=== PATIENT | male | born 1950 | race African-American/Black ===

== ENCOUNTER 2024-12-22 20:35 | Inpatient (IN) | payer MEDICARE, MEDICAID ==
[~2024-12-22] VITALS: Ht 172.7 cm; Wt 64.6 kg
[2024-12-22 20:40] VITALS: O2SAT 99
[2024-12-22 21:25] LABS: BASOPHILS % 0.5 % (0.0-2.0); EOSINOPHILS % 0.1 % (0.0-5.0); HEMATOCRIT. 44.0 % (42.0-52.0); HEMOGLOBIN. 14.7 g/dL (14.0-18.0); LYMPHOCYTES % 11.8 % (20.0-50.0); MEAN PLATELET VOLUME 7.5 fl (7.4-10.4); MONOCYTES % 7.1 % (2.0-8.0); NEUTROPHILS % 80.5 % (40.0-76.0); PLATELET 359 x1000/uL (130-400); RED BLOOD CELL COUNT 4.75 mill/uL (4.7-6.1); RED CELL DISTRIBUTION WIDTH 15.6 % (11.6-14.6)
[2024-12-22 21:39] LABS: INR 1.2
[2024-12-22 21:41] LABS: CREATININE 1.8 mg/dL (0.6-1.3)
[2024-12-22 21:42] LABS: TROPONIN I HIGH SENSITIVITY 4 ng/L (3.0-53)
[2024-12-22 21:43] LABS: ASPARTATE AMINOTRANSFERASE 24 IU/L (<34); BILIRUBIN DIRECT 0.2 mg/dL (<=3.0); BILIRUBIN TOTAL 0.5 mg/dL (0.1-1.0); PROTEIN TOTAL 7.9 g/dL (6.0-8.3); UREA NITROGEN BLOOD 46 mg/dL (9-23)
[2024-12-22] MEDS: SODIUM CHLORIDE 0.9% (SEPSIS BOLUS) IV ONE (21:52)
[2024-12-22] MEDS: PIPERACILLIN/TAZO 3.375G/50ML 50 ML IV STA (21:53)
[2024-12-22 22:23] LABS: INFLUENZA TYPE A Presumptive Negative (Pres. Neg.); INFLUENZA TYPE B Presumptive Negative (Pres. Neg.)
[2024-12-22 22:24] LABS: RESPIRATORY SYNCYTIAL VIRUS Not Detected (Not Detectd)
[2024-12-22] MEDS ORDERED: VANCOMYCIN 1.5GM/250ML IV SCH (23:00)
[2024-12-22] MEDS: VANCOMYCIN 1.25GM/250ML IV SCH (23:20)
[2024-12-23] MEDS ORDERED: DEXT 5%/0.9% NACL 500 ML IV ONE (00:15)
[2024-12-23] MEDS ORDERED: IPRATROPIUM/ALBUTEROL 0.5-3(2.5)MG/3ML NEB HHN PRN (00:15)
[2024-12-23] MEDS ORDERED: ONDANSETRON HCL 4MG/2ML INJ IV PRN (00:15)
[2024-12-23] MEDS ORDERED: DEXTROSE 50% WATER 50ML SYRINGE IV PRN (00:15)
[2024-12-23] MEDS ORDERED: SODIUM CHLORIDE 0.9% 1,000 ML IV ONE (00:30)
[2024-12-23] MEDS ORDERED: INSULIN GLARGINE 100 UNITS/ML SUBCUT NR (00:45)
[2024-12-23 00:59] LABS: CLARITY URINE CLEAR (CLEAR); COLOR URINE YELLOW (YELLOW); GLUCOSE URINE NEGATIVE (NEGATIVE); KETONES URINE TRACE (NEGATIVE); LEUKOCYTE ESTERASE URINE NEGATIVE (NEGATIVE); NITRITE URINE NEGATIVE (NEGATIVE); OCCULT BLOOD URINE 2+ (NEGATIVE); PH URINE 5.0 (4.5-8.0); PROTEIN URINE NEGATIVE (NEGATIVE); SPECIFIC GRAVITY URINE 1.021 (1.005-1.030); UROBILINOGEN URINE 0.2 E.U./dL (0.2-1.0)
[2024-12-23 01:21] LABS: *AMPHETAMINES SCREEN URINE NEGATIVE (NEGATIVE)
[2024-12-23 01:22] LABS: *BARBITURATES SCREEN URINE NEGATIVE (NEGATIVE); *BENZODIAZEPINES SCREEN URINE NEGATIVE (NEGATIVE); *COCAINE SCREEN URINE NEGATIVE (NEGATIVE); CANNABINOID URINE SCREEN NEGATIVE (NEGATIVE); ECSTASY MDMA SCREEN URINE NEGATIVE (NEGATIVE); METHADONE URINE SCREEN NEGATIVE (NEGATIVE); OPIATES URINE SCREEN NEGATIVE (NEGATIVE); PHENCYCLIDINE URINE SCREEN NEGATIVE (NEGATIVE)
[2024-12-23 02:28] VITALS: BP 130/94; PULSE 92; RESP 18; TEMP 36.3624
[2024-12-23] MEDS ORDERED: RISP1 PO (03:08)
[2024-12-23] MEDS ORDERED: TOPUD PO (03:08)
[2024-12-23] MEDS ORDERED: AMAN100T PO (03:08)
[2024-12-23] MEDS ORDERED: HYDR5TAB13 PO (03:08)
[2024-12-23] MEDS ORDERED: BETDL TP (03:08)
[2024-12-23] MEDS ORDERED: MIDO5TAB4 PO (03:08)
[2024-12-23] MEDS ORDERED: QUET100T34 PO (03:08)
[2024-12-23] MEDS ORDERED: ASPI-1406 PO (03:08)
[2024-12-23] MEDS ORDERED: FAMO20TA8 PO (03:08)
[2024-12-23] MEDS ORDERED: AMLO5TAB88 PO (03:08)
[2024-12-23] MEDS ORDERED: HYDR-4001 PO (03:08)
[2024-12-23] MEDS ORDERED: APIX5TAB PO (03:08)
[2024-12-23] MEDS ORDERED: METF-1149 PO (03:08)
[2024-12-23] MEDS ORDERED: ATOR40TA70 PO (03:08)
[2024-12-23 04:00] VITALS: BP 115/82; PULSE 87; RESP 18; TEMP 36.1; O2SAT 97
[2024-12-23 04:48] LABS: SQUAMOUS EPITHELIAL CELL URINE NONE SEEN /lpf (RARE/1+); WBC URINE 0-2 /hpf (0-2)
[2024-12-23 04:49] LABS: BACTERIA URINE NONE SEEN; URIC ACID CRYSTALS URINE 1+ /lpf
[2024-12-23] MEDS: PIPERACILLIN/TAZO 3.375G/50ML 50 ML IV SCH (06:14)
[2024-12-23] MEDS: BLOOD SUGAR DIAGNOSTIC STRIP TEST SCH (06:15)
[2024-12-23] MEDS: HYDROCORTISONE SOD SUCCINATE 100 MG/2 ML VIAL IV SCH (06:15)
[2024-12-23 07:23] LABS: PHOSPHORUS 3.5 mg/dL (2.5-4.9)
[2024-12-23 07:53] VITALS: BP 123/85; PULSE 77; RESP 19; TEMP 36.3; O2SAT 92
[2024-12-23 08:53] LABS: CLARITY URINE CLEAR (CLEAR); COLOR URINE YELLOW (YELLOW); GLUCOSE URINE NEGATIVE (NEGATIVE); KETONES URINE NEGATIVE (NEGATIVE); LEUKOCYTE ESTERASE URINE NEGATIVE (NEGATIVE); NITRITE URINE NEGATIVE (NEGATIVE); OCCULT BLOOD URINE 2+ (NEGATIVE); PH URINE 5.0 (4.5-8.0); PROTEIN URINE NEGATIVE (NEGATIVE); SPECIFIC GRAVITY URINE 1.023 (1.005-1.030); UROBILINOGEN URINE 0.2 E.U./dL (0.2-1.0)
[2024-12-23] MEDS ORDERED: ENOXAPARIN 40MG/0.4ML SYR SUBCUT SCH (09:00)
[2024-12-23 09:10] LABS: BACTERIA URINE NONE SEEN; HYALINE CASTS URINE 0-5 /lpf; SQUAMOUS EPITHELIAL CELL URINE RARE /lpf (RARE/1+); URIC ACID CRYSTALS URINE 2+ /lpf; WBC URINE 0-2 /hpf (0-2); YEAST URINE NONE SEEN
[2024-12-23] MEDS: PANTOPRAZOLE SODIUM 40 MG/VIAL IV SCH (10:09)
[2024-12-23] MEDS: INSULIN LISPRO 100 UNITS/ML SUBCUT SCH (10:10)
[2024-12-23 10:37] LABS: *AMPHETAMINES SCREEN URINE NEGATIVE (NEGATIVE); *BARBITURATES SCREEN URINE NEGATIVE (NEGATIVE); *BENZODIAZEPINES SCREEN URINE NEGATIVE (NEGATIVE); *COCAINE SCREEN URINE NEGATIVE (NEGATIVE); METHADONE URINE SCREEN NEGATIVE (NEGATIVE)
[2024-12-23 10:38] LABS: CANNABINOID URINE SCREEN NEGATIVE (NEGATIVE); ECSTASY MDMA SCREEN URINE NEGATIVE (NEGATIVE); OPIATES URINE SCREEN NEGATIVE (NEGATIVE); PHENCYCLIDINE URINE SCREEN NEGATIVE (NEGATIVE)
[2024-12-23 12:06] VITALS: BP 123/78; PULSE 77; RESP 19; TEMP 36.1; O2SAT 95
[2024-12-23 15:53] VITALS: BP 123/83; PULSE 75; RESP 18; TEMP 36.3; O2SAT 98
[2024-12-23 20:00] VITALS: BP 129/87; PULSE 76; RESP 18; TEMP 36.2; O2SAT 97
[2024-12-23] MEDS: VANCOMYCIN 750MG/150ML (BAXTER) IV SCH (21:58)
[2024-12-23] MEDS ORDERED: VANCOMYCIN 1GM/200ML PMX (BAXTER) IV SCH (23:00)
[2024-12-24] VITALS: BP 137/89; PULSE 75; RESP 20; TEMP 36.1; O2SAT 97
[2024-12-24 04:00] VITALS: BP 145/88; PULSE 69; RESP 20; TEMP 36.2; O2SAT 99
[2024-12-24 07:12] LABS: BASOPHILS % 0.1 % (0.0-2.0); EOSINOPHILS % 0.1 % (0.0-5.0); HEMATOCRIT. 36.3 % (42.0-52.0); HEMOGLOBIN. 12.3 g/dL (14.0-18.0); LYMPHOCYTES % 9.6 % (20.0-50.0); MEAN PLATELET VOLUME 7.5 fl (7.4-10.4); MONOCYTES % 4.2 % (2.0-8.0); NEUTROPHILS % 86.0 % (40.0-76.0); PLATELET 308 x1000/uL (130-400); RED BLOOD CELL COUNT 3.92 mill/uL (4.7-6.1); RED CELL DISTRIBUTION WIDTH 15.1 % (11.6-14.6)
[2024-12-24 07:17] LABS: CREATININE 1.1 mg/dL (0.6-1.3); TRIGLYCERIDE 69 mg/dL (0-150); UREA NITROGEN BLOOD 34 mg/dL (9-23)
[2024-12-24 07:18] LABS: LDL CHOLESTEROL 41 mg/dL (5-100)
[2024-12-24 07:19] LABS: T4 FREE 0.95 ng/dL (0.89-1.76)
[2024-12-24 08:15] VITALS: BP 109/74; PULSE 100; RESP 18; TEMP 36.2
[2024-12-24] MEDS: DEXT 5%/0.9% NACL 500 ML IV ONE (09:00)
[2024-12-24 09:39] LABS: ASPARTATE AMINOTRANSFERASE 29 IU/L (<34); BILIRUBIN DIRECT 0.3 mg/dL (<=3.0); BILIRUBIN TOTAL 0.7 mg/dL (0.1-1.0)
[2024-12-24 09:40] LABS: PROTEIN TOTAL 7.2 g/dL (6.0-8.3)
[2024-12-24 11:48] VITALS: BP 115/81; PULSE 101; RESP 18; TEMP 36.6; O2SAT 94
[2024-12-24] MEDS ORDERED: VANCOMYCIN 1GM PMX (XELLIA) 200 ML IV SCH (13:00)
[2024-12-24] MEDS: ENOXAPARIN 40MG/0.4ML SYR SUBCUT SCH (14:40)
[2024-12-24 15:55] VITALS: BP 131/83; PULSE 94; RESP 20; TEMP 36.7; O2SAT 93
[2024-12-24 20:42] VITALS: BP 126/87; PULSE 88; RESP 16; TEMP 36.9; O2SAT 99
[2024-12-24] MEDS: DEXT 5%/0.9% NACL 1,000 ML IV SCH (21:51)
[2024-12-25] VITALS: BP 134/83; PULSE 73; RESP 18; TEMP 36.4
[2024-12-25] MEDS: POTASSIUM CHLORIDE 20MEQ TABLET SR PO NR (02:28)
[2024-12-25 04:00] VITALS: BP 126/80; PULSE 92; RESP 18; TEMP 36.4
[2024-12-25 08:00] VITALS: BP 137/89; PULSE 60; RESP 18; TEMP 36.1; O2SAT 97
[2024-12-25] MEDS: FAMOTIDINE 20MG/2ML VIAL IV SCH (09:45)
[2024-12-25 09:48] LABS: HEMATOCRIT. 34.5 % (42.0-52.0); HEMOGLOBIN. 11.5 g/dL (14.0-18.0); MEAN PLATELET VOLUME 7.5 fl (7.4-10.4); PLATELET 306 x1000/uL (130-400); RED BLOOD CELL COUNT 3.73 mill/uL (4.7-6.1); RED CELL DISTRIBUTION WIDTH 15.1 % (11.6-14.6)
[2024-12-25 10:11] LABS: CREATININE 0.9 mg/dL (0.6-1.3); UREA NITROGEN BLOOD 20 mg/dL (9-23)
[2024-12-25 10:59] LABS: BAND% 1.0 % (1.0-6.0); LYMPHOCYTES % MANUAL 9.0 % (20.0-50.0); MONOCYTES % MANUAL 3.0 % (2.0-8.0); NEUTROPHILS % MANUAL 87.0 % (45.0-75.0); PLATELET ESTIMATE NORMAL
[2024-12-25 11:51] VITALS: BP 137/68; PULSE 76; RESP 18; TEMP 97.6
[2024-12-25 12:00] VITALS: BP 140/88; PULSE 99; RESP 18; TEMP 36.2; O2SAT 98
[2024-12-25 16:00] VITALS: BP 146/85; PULSE 78; RESP 18; TEMP 36.3; O2SAT 98
== END 2024-12-25 17:55 | DRG 871 ==
LOC: ER 20:45 → EDBEDREQ 23:49 → EDBEDREQTM 23:49 → ENRESERV 12-23 01:23 → 7WST 12-23 01:52
PROVIDERS: ADMIT Internal Medicine; ATTEND Internal Medicine
DX: A41.9 Sepsis, unspecified organism (principal); L89.313 Pressure ulcer of right buttock, stage 3; G93.40 Encephalopathy, unspecified; N17.9 Acute kidney failure, unspecified; E87.20 Acidosis, unspecified; Z20.822 Contact with and (suspected) exposure to COVID-19; N18.9 Chronic kidney disease, unspecified; E11.22 Type 2 diabetes mellitus with diabetic chronic kidney disease; G20.C Parkinsonism, unspecified; R13.12 Dysphagia, oropharyngeal phase; I12.9 Hypertensive chronic kidney disease with stage 1 through stage 4 chronic kidney disease, or unspecified chronic kidney disease; L89.626 Pressure-induced deep tissue damage of left heel; L89.616 Pressure-induced deep tissue damage of right heel; L89.326 Pressure-induced deep tissue damage of left buttock; F02.80 Dementia in other diseases classified elsewhere, unspecified severity, without behavioral disturbance, psychotic disturbance, mood disturbance, and anxiety; L89.512 Pressure ulcer of right ankle, stage 2; R62.7 Adult failure to thrive; Z68.21 Body mass index [BMI] 21.0-21.9, adult; Z79.01 Long term (current) use of anticoagulants; Z79.82 Long term (current) use of aspirin; Z79.899 Other long term (current) drug therapy
CPT/HCPCS: 36415; 71045; 74018; 80048; 80061; 80076; 80202; 80305; 80320; 81003; 82140; 82962; 83036; 83605; 83735; 83880; 84100; 84145; 84439; 84443; 84484; 85025; 87420; 87426; 87804; 93005; 96365; 96368; 99291; A4606; J1308; J1650; J1720; J1815; J2470; J2543; J3373; J7030; J7042; G0480

== ENCOUNTER 2025-01-29 10:15 | Inpatient (IN) | payer MEDICARE, MEDICAID ==
[~2025-01-29] VITALS: Ht 182.9 cm; Wt 64.4 kg
[~2025-01-29 10:15] MED LIST: AMAN100T PO; AMLO5TAB88 PO; APIX5TAB PO; ASPI-1406 PO; ATOR40TA70 PO; BETDL TP; FAMO20TA8 PO; HYDR-4001 PO; HYDR5TAB13 PO; METF-1149 PO; MIDO5TAB4 PO; QUET100T34 PO; RISP1 PO; TOPUD PO
[2025-01-29] MEDS: SODIUM CHLORIDE 0.9% 1,000 ML IV ONE (10:33)
[2025-01-29] MEDS: PIPERACILLIN/TAZO 3.375G/50ML 50 ML IV ONE (10:33)
[2025-01-29 10:56] LABS: BASOPHILS % 0.4 % (0.0-2.0); EOSINOPHILS % 0.1 % (0.0-5.0); HEMATOCRIT. 29.7 % (42.0-52.0); HEMOGLOBIN. 9.8 g/dL (14.0-18.0); LYMPHOCYTES % 23.5 % (20.0-50.0); MEAN PLATELET VOLUME 9.3 fl (7.4-10.4); MONOCYTES % 3.6 % (2.0-8.0); NEUTROPHILS % 72.4 % (40.0-76.0); PLATELET 299 x1000/uL (130-400); RED BLOOD CELL COUNT 3.32 mill/uL (4.7-6.1); RED CELL DISTRIBUTION WIDTH 16.4 % (11.6-14.6)
[2025-01-29] MEDS: VANCOMYCIN 1G PREMIX 200 ML IV ONE (11:06)
[2025-01-29 11:19] LABS: ASPARTATE AMINOTRANSFERASE 42 IU/L (<34); BILIRUBIN DIRECT 0.2 mg/dL (<=3.0); BILIRUBIN TOTAL 0.4 mg/dL (0.1-1.0); CREATININE 0.7 mg/dL (0.6-1.3); PROTEIN TOTAL 6.7 g/dL (6.0-8.3); TROPONIN I HIGH SENSITIVITY 9 ng/L (3.0-53); UREA NITROGEN BLOOD 15 mg/dL (9-23)
[2025-01-29 11:37] LABS: BG BASE EXCESS 1.0 mmol/L (-2.0-3.0); BG CARBOXYHEMOGLOBIN 0.3 % (0.5-1.5); BG DEOXYHEMOGLOBIN 0.4 % (0.0-5.0); BG FLOW(L/min) 15.00 L/min; BG FRACTION INSPIRED OXYGEN 100; BG HCO3 ACT 23.1 mmol/L (21.0-28.0); BG METHEMOGLOBIN 0.3 % (0.5-1.5); BG OXYGEN SATURATION 99.6 % (94.0-98.0); BG OXYHEMOGLOBIN 99.0 % (94.0-98.0); BG PCO2 28.5 mmHg (35.0-48.0); BG PH 7.527 (7.350-7.450); BG PO2 291.5 mmHg (83.0-108.0); BG SAMPLE SITE LEFT BRACHIAL; BG TOTAL HEMOGLOBIN 10.5 g/dL (13.5-17.5); BG VENT MODE MASK - NRB
[2025-01-29 12:03] LABS: INR 1.2
[2025-01-29 16:00] VITALS: BP_SYST 155; BP_SYST 97; BP_DIAS 131; BP_DIAS 77; PULSE 124; RESP 25; RESP 30; TEMP 39.4; TEMP 39.476; O2SAT 100
[2025-01-29 18:00] VITALS: BP 101/70; PULSE 126; RESP 26; O2SAT 100
[2025-01-29 20:00] VITALS: BP 106/78; PULSE 127; RESP 25; TEMP 37; O2SAT 100
[2025-01-29] MEDS ORDERED: MIDODRINE HCL 5MG TABLET PO PRN (21:45)
[2025-01-29 22:00] VITALS: BP 99/64; PULSE 120; RESP 24; O2SAT 98
[2025-01-29] MEDS: PIPERACILLIN/TAZO 3.375G/50ML 50 ML IV SCH (23:00)
[2025-01-29] MEDS: HEPARIN 5000 UNITS/ML VIAL SUBCUT SCH (23:00)
[2025-01-29] MEDS: SODIUM CHLORIDE 0.9% 1,000 ML IV SCH (23:01)
[2025-01-30] VITALS (12 sets, daily range): BP systolic 82–115; BP diastolic 67–95; PULSE 98–115; RESP 22–33; TEMP 36.3–37.6; O2SAT 99–100
[2025-01-30] MEDS: VANCOMYCIN 750MG/150ML (BAXTER) IV SCH ×2 (00:28→22:41)
[2025-01-30 07:24] LABS: BASOPHILS % 0.5 % (0.0-2.0); EOSINOPHILS % 0.6 % (0.0-5.0); HEMATOCRIT. 26.0 % (42.0-52.0); HEMOGLOBIN. 8.4 g/dL (14.0-18.0); LYMPHOCYTES % 13.7 % (20.0-50.0); MEAN PLATELET VOLUME 9.3 fl (7.4-10.4); MONOCYTES % 9.4 % (2.0-8.0); NEUTROPHILS % 75.8 % (40.0-76.0); PLATELET 261 x1000/uL (130-400); RED BLOOD CELL COUNT 2.92 mill/uL (4.7-6.1); RED CELL DISTRIBUTION WIDTH 16.6 % (11.6-14.6)
[2025-01-30 07:40] LABS: TROPONIN I HIGH SENSITIVITY 8 ng/L (3.0-53)
[2025-01-30 07:45] LABS: CREATININE 0.7 mg/dL (0.6-1.3); UREA NITROGEN BLOOD 16 mg/dL (9-23)
[2025-01-30] MEDS ORDERED: FAMOTIDINE 20MG TABLET PO SCH (09:00)
[2025-01-30] MEDS ORDERED: FAMOTIDINE(NEO) 1MG/ML SUSP PO SCH (09:00)
[2025-01-30] MEDS: QUETIAPINE FUMARATE 50MG TABLET PO SCH (09:32)
[2025-01-30] MEDS: MIDODRINE HCL 5MG TABLET PO SCH (09:33)
[2025-01-30] MEDS: ASPIRIN 81MG EC TABLET PO SCH (09:33)
[2025-01-30] MEDS: FAMOTIDINE 20MG TABLET PO SCH (09:33)
[2025-01-30] MEDS ORDERED: VANCOMYCIN 750MG/150ML (BAXTER) IV SCH (10:30)
[2025-01-30] MEDS ORDERED: IPRATROPIUM/ALBUTEROL 0.5-3(2.5)MG/3ML NEB HHN PRN (10:45)
[2025-01-30] MEDS: ENOXAPARIN 60MG/0.6ML SYR SUBCUT SCH (11:14)
[2025-01-30] MEDS: BLOOD SUGAR DIAGNOSTIC STRIP TEST SCH (12:09)
[2025-01-30] MEDS: INSULIN LISPRO 100 UNITS/ML SUBCUT SCH (13:00)
[2025-01-30 22:40] LABS: FOLIC ACID (FOLATE) SERUM > 20.00 ng/mL (>5.38); VITAMIN B12 SERUM 434 pg/mL (211-911)
[2025-01-30] MEDS: ATORVASTATIN CALCIUM 40MG TABLET PO SCH (22:41)
[2025-01-30] MEDS: RISPERIDONE 1MG TABLET PO SCH (22:41)
[2025-01-30] MEDS: AMANTADINE 100MG CAPSULE PO SCH (22:44)
[2025-01-31] VITALS (16 sets, daily range): BP systolic 85–119; BP diastolic 59–79; PULSE 100–115; RESP 19–41; TEMP 36.2–37.4; O2SAT 91–100
[2025-01-31] MEDS: IPRATROPIUM/ALBUTEROL 0.5-3(2.5)MG/3ML NEB HHN SCH (05:48)
[2025-01-31 07:10] LABS: CREATININE 0.5 mg/dL (0.6-1.3); UREA NITROGEN BLOOD 13 mg/dL (9-23)
[2025-01-31 07:11] LABS: BASOPHILS % 0.4 % (0.0-2.0); EOSINOPHILS % 0.8 % (0.0-5.0); HEMATOCRIT. 24.9 % (42.0-52.0); HEMOGLOBIN. 8.1 g/dL (14.0-18.0); LYMPHOCYTES % 15.3 % (20.0-50.0); MEAN PLATELET VOLUME 8.9 fl (7.4-10.4); MONOCYTES % 7.7 % (2.0-8.0); NEUTROPHILS % 75.8 % (40.0-76.0); PLATELET 247 x1000/uL (130-400); RED BLOOD CELL COUNT 2.79 mill/uL (4.7-6.1); RED CELL DISTRIBUTION WIDTH 16.4 % (11.6-14.6)
[2025-01-31 10:29] LABS: INFLUENZA TYPE A Presumptive Negative (Pres. Neg.); INFLUENZA TYPE B Presumptive Negative (Pres. Neg.); RESPIRATORY SYNCYTIAL VIRUS Not Detected (Not Detectd)
[2025-01-31] MEDS: CYANOCOBALAMIN 1000MCG/ML VIAL IM SCH (11:15)
[2025-01-31 12:16] LABS: CLARITY URINE CLOUDY (CLEAR); COLOR URINE DARK YELLOW (YELLOW); GLUCOSE URINE NEGATIVE (NEGATIVE); KETONES URINE TRACE (NEGATIVE); LEUKOCYTE ESTERASE URINE 1+ (NEGATIVE); NITRITE URINE NEGATIVE (NEGATIVE); OCCULT BLOOD URINE TRACE (NEGATIVE); PH URINE 5.5 (4.5-8.0); PROTEIN URINE 1+ (NEGATIVE); SPECIFIC GRAVITY URINE 1.056 (1.005-1.030); UROBILINOGEN URINE 2.0 E.U./dL (0.2-1.0)
[2025-01-31 12:51] LABS: SQUAMOUS EPITHELIAL CELL URINE FEW /lpf (RARE/1+)
[2025-01-31 12:52] LABS: WBC URINE 50-100 /hpf (0-2)
[2025-01-31 12:53] LABS: BACTERIA URINE 2+; RBC URINE 0-2 /hpf (0-2)
[2025-01-31] MEDS: VANCOMYCIN 1GM PMX (XELLIA) 200 ML IV SCH (15:07)
[2025-02-01] VITALS (16 sets, daily range): BP systolic 96–128; BP diastolic 63–96; PULSE 84–110; RESP 19–40; TEMP 36.6–38.4; O2SAT 98–100
[2025-02-01 05:47] LABS: CREATININE 0.5 mg/dL (0.6-1.3); UREA NITROGEN BLOOD 7 mg/dL (9-23)
[2025-02-01 05:49] LABS: ASPARTATE AMINOTRANSFERASE 59 IU/L (<34); BILIRUBIN DIRECT 0.2 mg/dL (<=3.0); BILIRUBIN TOTAL 0.4 mg/dL (0.1-1.0); PHOSPHORUS 2.8 mg/dL (2.5-4.9); PROTEIN TOTAL 5.4 g/dL (6.0-8.3)
[2025-02-01 05:55] LABS: INR 1.1
[2025-02-01 06:00] LABS: BASOPHILS % 0.2 % (0.0-2.0); EOSINOPHILS % 1.2 % (0.0-5.0); HEMATOCRIT. 23.1 % (42.0-52.0); HEMOGLOBIN. 7.2 g/dL (14.0-18.0); LYMPHOCYTES % 13.4 % (20.0-50.0); MEAN PLATELET VOLUME 8.7 fl (7.4-10.4); MONOCYTES % 8.0 % (2.0-8.0); NEUTROPHILS % 77.2 % (40.0-76.0); PLATELET 270 x1000/uL (130-400); RED BLOOD CELL COUNT 2.56 mill/uL (4.7-6.1); RED CELL DISTRIBUTION WIDTH 16.6 % (11.6-14.6)
[2025-02-01] MEDS: MAGNESIUM 2 G PREMIX 50 ML IV SCH (13:36)
[2025-02-01] MEDS: ACETAMINOPHEN 1000MG/100ML 100 ML IV PRN (23:28)
[2025-02-02] VITALS (16 sets, daily range): BP systolic 87–135; BP diastolic 54–86; PULSE 90–107; RESP 14–38; TEMP 36.4–37.9; O2SAT 96–100
[2025-02-02 05:38] LABS: CREATININE 0.5 mg/dL (0.6-1.3); UREA NITROGEN BLOOD 6 mg/dL (9-23)
[2025-02-02] MEDS: DEXTROSE 50% WATER 50ML SYRINGE IV PRN (11:57)
[2025-02-02] MEDS ORDERED: NALOXONE HCL 0.4MG/ML VIAL IV PRN (12:15)
[2025-02-02] MEDS: KCL 20MEQ/100ML PREMIX 100 ML IV SCH (13:06)
[2025-02-02] MEDS: DEXT 5%/0.45% NACL 1000ML 1,000 ML IV SCH (14:16)
[2025-02-02 22:11] LABS: BASOPHILS % 0.7 % (0.0-2.0); EOSINOPHILS % 1.5 % (0.0-5.0); HEMATOCRIT. 24.1 % (42.0-52.0); HEMOGLOBIN. 7.7 g/dL (14.0-18.0); LYMPHOCYTES % 17.9 % (20.0-50.0); MEAN PLATELET VOLUME 7.9 fl (7.4-10.4); MONOCYTES % 7.5 % (2.0-8.0); NEUTROPHILS % 72.4 % (40.0-76.0); PLATELET 335 x1000/uL (130-400); RED BLOOD CELL COUNT 2.70 mill/uL (4.7-6.1); RED CELL DISTRIBUTION WIDTH 16.6 % (11.6-14.6)
[2025-02-02 22:36] LABS: CREATININE 0.4 mg/dL (0.6-1.3); UREA NITROGEN BLOOD < 5 mg/dL (9-23)
[2025-02-02 22:38] LABS: PHOSPHORUS 2.5 mg/dL (2.5-4.9)
[2025-02-03] VITALS (15 sets, daily range): BP systolic 92–136; BP diastolic 59–96; PULSE 90–115; RESP 18–28; TEMP 36.2–36.9; O2SAT 18–100
[2025-02-03 07:06] LABS: BASOPHILS % 0.7 % (0.0-2.0); EOSINOPHILS % 2.4 % (0.0-5.0); HEMATOCRIT. 23.2 % (42.0-52.0); HEMOGLOBIN. 7.7 g/dL (14.0-18.0); LYMPHOCYTES % 22.0 % (20.0-50.0); MEAN PLATELET VOLUME 8.5 fl (7.4-10.4); MONOCYTES % 9.2 % (2.0-8.0); NEUTROPHILS % 65.7 % (40.0-76.0); PLATELET 318 x1000/uL (130-400); RED BLOOD CELL COUNT 2.63 mill/uL (4.7-6.1); RED CELL DISTRIBUTION WIDTH 16.4 % (11.6-14.6)
[2025-02-03 07:34] LABS: CREATININE 0.4 mg/dL (0.6-1.3); UREA NITROGEN BLOOD < 5 mg/dL (9-23)
[2025-02-03] MEDS: MORPHINE SULFATE 2 MG/ML INJ (NOT FOR IM USE) IV PRN (16:47)
[2025-02-04] VITALS (15 sets, daily range): BP systolic 109–136; BP diastolic 73–94; PULSE 94–112; RESP 15–30; TEMP 36.2–37; O2SAT 96–100
[2025-02-04 07:30] LABS: BASOPHILS % 0.5 % (0.0-2.0); EOSINOPHILS % 2.3 % (0.0-5.0); HEMATOCRIT. 25.3 % (42.0-52.0); HEMOGLOBIN. 8.1 g/dL (14.0-18.0); LYMPHOCYTES % 26.9 % (20.0-50.0); MEAN PLATELET VOLUME 7.5 fl (7.4-10.4); MONOCYTES % 13.3 % (2.0-8.0); NEUTROPHILS % 57.0 % (40.0-76.0); PLATELET 363 x1000/uL (130-400); RED BLOOD CELL COUNT 2.84 mill/uL (4.7-6.1); RED CELL DISTRIBUTION WIDTH 16.7 % (11.6-14.6)
[2025-02-04 07:48] LABS: CREATININE 0.5 mg/dL (0.6-1.3)
[2025-02-04 07:49] LABS: UREA NITROGEN BLOOD < 5 mg/dL (9-23)
[2025-02-04] MEDS ORDERED: BUPIVACAINE HCL/PF 0.5% (5MG/ML) 10ML ONE (16:37)
[2025-02-04] MEDS ORDERED: LIDOCAINE HCL 1% 20ML VIAL ONE (16:37)
[2025-02-04] MEDS ORDERED: POLYMYXIN B SULFATE 500000 UNITS/VIAL ONE (16:38)
[2025-02-04] MEDS ORDERED: FENTANYL CITRATE/PF 50MCG/ML 2ML VIAL ONE (17:18)
[2025-02-04] MEDS ORDERED: LIDOCAINE HCL 1% 10 MG/ML 10ML VIAL ONE (17:19)
[2025-02-04] MEDS ORDERED: PROPOFOL 200MG/20ML VIAL IV ONE (17:19)
[2025-02-04] MEDS ORDERED: ONDANSETRON HCL 4MG/2ML INJ ONE (17:29)
[2025-02-04] MEDS ORDERED: ACETAMINOPHEN 1000MG/100ML 100 ML IV ONE (17:42)
[2025-02-04] MEDS: CEFTRIAXONE 2GM/50ML 50 ML IV SCH (20:33)
[2025-02-05] VITALS (12 sets, daily range): BP systolic 108–134; BP diastolic 77–101; PULSE 95–107; RESP 20–30; TEMP 36.4–36.6; O2SAT 100
[2025-02-05 07:25] LABS: BASOPHILS % 0.3 % (0.0-2.0); EOSINOPHILS % 1.5 % (0.0-5.0); HEMATOCRIT. 24.3 % (42.0-52.0); HEMOGLOBIN. 8.0 g/dL (14.0-18.0); LYMPHOCYTES % 20.1 % (20.0-50.0); MEAN PLATELET VOLUME 7.0 fl (7.4-10.4); MONOCYTES % 9.3 % (2.0-8.0); NEUTROPHILS % 68.8 % (40.0-76.0); PLATELET 417 x1000/uL (130-400); RED BLOOD CELL COUNT 2.76 mill/uL (4.7-6.1); RED CELL DISTRIBUTION WIDTH 16.4 % (11.6-14.6)
[2025-02-05 07:52] LABS: CREATININE 0.5 mg/dL (0.6-1.3); UREA NITROGEN BLOOD < 5 mg/dL (9-23)
[2025-02-06] VITALS (12 sets, daily range): BP systolic 105–135; BP diastolic 71–94; PULSE 97–115; RESP 14–30; TEMP 36.3–36.9; O2SAT 87–100
[2025-02-06] MEDS ORDERED: LIDOCAINE HCL 1% 10 MG/ML 10ML VIAL ONE (07:12)
[2025-02-06] MEDS ORDERED: LORAZEPAM 2MG/ML UD SYRINGE IV PRN (08:00)
[2025-02-06] MEDS: FAMOTIDINE 20MG/2ML VIAL IV SCH (10:11)
[2025-02-07] VITALS (11 sets, daily range): BP systolic 101–127; BP diastolic 73–109; PULSE 98–107; RESP 12–26; TEMP 36.2–36.7; O2SAT 100
[2025-02-07 07:30] LABS: BASOPHILS % 0.6 % (0.0-2.0); EOSINOPHILS % 2.6 % (0.0-5.0); HEMATOCRIT. 26.3 % (42.0-52.0); HEMOGLOBIN. 8.7 g/dL (14.0-18.0); LYMPHOCYTES % 28.7 % (20.0-50.0); MEAN PLATELET VOLUME 7.4 fl (7.4-10.4); MONOCYTES % 6.4 % (2.0-8.0); NEUTROPHILS % 61.7 % (40.0-76.0); PLATELET 429 x1000/uL (130-400); RED BLOOD CELL COUNT 2.99 mill/uL (4.7-6.1); RED CELL DISTRIBUTION WIDTH 17.3 % (11.6-14.6)
[2025-02-07 07:50] LABS: CREATININE 0.4 mg/dL (0.6-1.3); UREA NITROGEN BLOOD < 5 mg/dL (9-23)
[2025-02-07 07:52] LABS: ASPARTATE AMINOTRANSFERASE 18 IU/L (<34); PHOSPHORUS 2.1 mg/dL (2.5-4.9)
[2025-02-07 07:53] LABS: BILIRUBIN TOTAL 0.2 mg/dL (0.1-1.0); PROTEIN TOTAL 5.1 g/dL (6.0-8.3)
[2025-02-07] MEDS: DEXT 5%/0.45% NACL 1000ML 1,000 ML IV SCH (09:37)
[2025-02-07] MEDS: MAGNESIUM 2 G PREMIX 50 ML IV NR (11:04)
[2025-02-07] MEDS: KCL 20MEQ/100ML PREMIX 100 ML IV NR (12:50)
[2025-02-07] MEDS: POTASSIUM PHOSPHATE 15MMOL in DEXTROSE 5% WATER 250ML IV ONE (13:29)
[2025-02-07] MEDS: TOTAL PARENTERAL NUTRITION 2,000 ML IV SCH (21:05)
[2025-02-08] VITALS: BP 107/75; PULSE 98; RESP 28; TEMP 36.4; O2SAT 100
[2025-02-08 04:00] VITALS: BP 126/86; PULSE 96; RESP 30; TEMP 37; O2SAT 100
[2025-02-08 07:10] LABS: BASOPHILS % 0.4 % (0.0-2.0); EOSINOPHILS % 2.0 % (0.0-5.0); HEMATOCRIT. 25.6 % (42.0-52.0); HEMOGLOBIN. 8.3 g/dL (14.0-18.0); LYMPHOCYTES % 24.9 % (20.0-50.0); MEAN PLATELET VOLUME 6.7 fl (7.4-10.4); MONOCYTES % 8.2 % (2.0-8.0); NEUTROPHILS % 64.5 % (40.0-76.0); PLATELET 421 x1000/uL (130-400); RED BLOOD CELL COUNT 2.91 mill/uL (4.7-6.1); RED CELL DISTRIBUTION WIDTH 17.4 % (11.6-14.6)
[2025-02-08 07:43] LABS: UREA NITROGEN BLOOD 5 mg/dL (9-23)
[2025-02-08 07:45] LABS: CREATININE 0.4 mg/dL (0.6-1.3); TRIGLYCERIDE 77 mg/dL (0-150)
[2025-02-08 07:47] LABS: ASPARTATE AMINOTRANSFERASE 22 IU/L (<34); BILIRUBIN TOTAL 0.2 mg/dL (0.1-1.0); PHOSPHORUS 3.0 mg/dL (2.5-4.9); PROTEIN TOTAL 5.7 g/dL (6.0-8.3)
[2025-02-08] MEDS: IOHEXOL-350 100 ML BOTTLE ONE (07:50)
[2025-02-08] MEDS: IOHEXOL-350 50 ML BOTTLE ONE (07:51)
[2025-02-08 08:00] VITALS: BP 140/84; PULSE 103; RESP 31; TEMP 36.2; O2SAT 100
[2025-02-08 12:00] VITALS: BP 146/91; PULSE 109; RESP 28; TEMP 36.9; O2SAT 100
[2025-02-08 16:00] VITALS: BP 137/73; PULSE 106; RESP 14; TEMP 36.8; O2SAT 100
[2025-02-08 20:00] VITALS: BP 119/81; PULSE 102; RESP 19; TEMP 36.4; O2SAT 100
[2025-02-08] MEDS: TOTAL PARENTERAL NUTRITION 2,000 ML IV SCH (21:08)
[2025-02-09] VITALS: BP 128/83; PULSE 98; RESP 25; TEMP 36.6; O2SAT 100
[2025-02-09 04:00] VITALS: BP 126/92; PULSE 95; RESP 21; TEMP 36.7; O2SAT 100
[2025-02-09 07:09] LABS: UREA NITROGEN BLOOD 10 mg/dL (9-23)
[2025-02-09 07:10] LABS: CREATININE 0.4 mg/dL (0.6-1.3); TRIGLYCERIDE 103 mg/dL (0-150)
[2025-02-09 07:12] LABS: ASPARTATE AMINOTRANSFERASE 19 IU/L (<34)
[2025-02-09 07:13] LABS: BILIRUBIN TOTAL 0.2 mg/dL (0.1-1.0); PHOSPHORUS 2.0 mg/dL (2.5-4.9); PROTEIN TOTAL 6.1 g/dL (6.0-8.3)
[2025-02-09 07:33] LABS: BASOPHILS % 0.3 % (0.0-2.0); EOSINOPHILS % 1.4 % (0.0-5.0); HEMATOCRIT. 28.1 % (42.0-52.0); HEMOGLOBIN. 9.1 g/dL (14.0-18.0); LYMPHOCYTES % 28.1 % (20.0-50.0); MEAN PLATELET VOLUME 6.7 fl (7.4-10.4); MONOCYTES % 7.5 % (2.0-8.0); NEUTROPHILS % 62.7 % (40.0-76.0); PLATELET 425 x1000/uL (130-400); RED BLOOD CELL COUNT 3.17 mill/uL (4.7-6.1); RED CELL DISTRIBUTION WIDTH 17.2 % (11.6-14.6)
[2025-02-09 08:00] VITALS: PULSE 113; RESP 25; TEMP 36.6; O2SAT 99
[2025-02-09 12:00] VITALS: BP 122/80; PULSE 108; RESP 30; O2SAT 98
[2025-02-09 16:00] VITALS: BP 115/84; PULSE 111; RESP 18; O2SAT 100
[2025-02-09 20:00] VITALS: BP 114/97; PULSE 113; RESP 20; TEMP 36.6; O2SAT 100
[2025-02-09] MEDS: TOTAL PARENTERAL NUTRITION 2,000 ML IV SCH (21:22)
[2025-02-10] VITALS: BP 111/69; PULSE 104; RESP 24; TEMP 36.5; O2SAT 100
[2025-02-10 04:00] VITALS: BP 99/75; PULSE 113; RESP 35; TEMP 36.3; O2SAT 100
[2025-02-10 06:06] LABS: CREATININE 0.3 mg/dL (0.6-1.3); UREA NITROGEN BLOOD 12 mg/dL (9-23)
[2025-02-10 06:07] LABS: TRIGLYCERIDE 84 mg/dL (0-150)
[2025-02-10 06:08] LABS: ASPARTATE AMINOTRANSFERASE 24 IU/L (<34)
[2025-02-10 06:09] LABS: BILIRUBIN TOTAL 0.2 mg/dL (0.1-1.0); PHOSPHORUS 2.0 mg/dL (2.5-4.9); PROTEIN TOTAL 6.4 g/dL (6.0-8.3)
[2025-02-10 06:32] LABS: BASOPHILS % 0.4 % (0.0-2.0); EOSINOPHILS % 0.8 % (0.0-5.0); HEMATOCRIT. 27.1 % (42.0-52.0); HEMOGLOBIN. 8.7 g/dL (14.0-18.0); LYMPHOCYTES % 28.2 % (20.0-50.0); MEAN PLATELET VOLUME 6.5 fl (7.4-10.4); MONOCYTES % 7.5 % (2.0-8.0); NEUTROPHILS % 63.1 % (40.0-76.0); PLATELET 399 x1000/uL (130-400); RED BLOOD CELL COUNT 3.02 mill/uL (4.7-6.1); RED CELL DISTRIBUTION WIDTH 17.4 % (11.6-14.6)
[2025-02-10 08:00] VITALS: BP 109/77; PULSE 100; RESP 31; TEMP 36.4; O2SAT 100
[2025-02-10 12:00] VITALS: BP 106/73; PULSE 108; RESP 23; TEMP 36.1; O2SAT 95
[2025-02-10] MEDS: MAGNESIUM 2 G PREMIX 50 ML IV SCH (12:05)
[2025-02-10] MEDS: POTASSIUM PHOSPHATE 20MMOL in DEXT 5% WATER 250ML IV SCH (15:07)
[2025-02-10 16:00] VITALS: BP 116/74; PULSE 106; RESP 25; TEMP 36.7; O2SAT 100
[2025-02-10 20:00] VITALS: BP 98/71; PULSE 104; RESP 29; TEMP 36.5; O2SAT 100
[2025-02-11] VITALS: BP 104/65; PULSE 94; RESP 25; TEMP 36.9; O2SAT 100
[2025-02-11] MEDS: FAT EMULSIONS 250 ML IV SCH (01:00)
[2025-02-11 04:00] VITALS: BP 113/73; PULSE 94; RESP 27; TEMP 36.4; O2SAT 100
[2025-02-11 05:57] LABS: BASOPHILS % 0.4 % (0.0-2.0); EOSINOPHILS % 2.3 % (0.0-5.0); HEMATOCRIT. 27.5 % (42.0-52.0); HEMOGLOBIN. 8.9 g/dL (14.0-18.0); LYMPHOCYTES % 25.3 % (20.0-50.0); MEAN PLATELET VOLUME 6.6 fl (7.4-10.4); MONOCYTES % 8.4 % (2.0-8.0); NEUTROPHILS % 63.6 % (40.0-76.0); PLATELET 386 x1000/uL (130-400); RED BLOOD CELL COUNT 3.05 mill/uL (4.7-6.1); RED CELL DISTRIBUTION WIDTH 18.0 % (11.6-14.6)
[2025-02-11 06:11] LABS: UREA NITROGEN BLOOD 8 mg/dL (9-23)
[2025-02-11 06:12] LABS: TRIGLYCERIDE 251 mg/dL (0-150)
[2025-02-11 06:14] LABS: ASPARTATE AMINOTRANSFERASE 65 IU/L (<34); PHOSPHORUS 1.6 mg/dL (2.5-4.9)
[2025-02-11 06:15] LABS: BILIRUBIN TOTAL < 0.2 mg/dL (0.1-1.0); PROTEIN TOTAL 5.9 g/dL (6.0-8.3)
[2025-02-11 06:19] LABS: CREATININE 0.4 mg/dL (0.6-1.3)
[2025-02-11 08:00] VITALS: BP 117/80; PULSE 105; RESP 24; TEMP 36.5; O2SAT 100
[2025-02-11 12:00] VITALS: BP 103/76; PULSE 114; RESP 32; TEMP 36.5; O2SAT 99
[2025-02-11] MEDS: DEXT 5% IV ONE (13:23)
[2025-02-11] MEDS: WATER IV ONE (13:23)
[2025-02-11] MEDS: POTASSIUM PHOSPHATE IV ONE (13:23)
[2025-02-11 16:00] VITALS: BP 104/57; PULSE 108; RESP 28; TEMP 36.6; O2SAT 100
[2025-02-11 19:55] VITALS: BP 126/86; PULSE 73; RESP 24; TEMP 97.9
== END 2025-02-11 21:30 | DRG 853 ==
LOC: ER 10:15 → EDBEDREQ 13:05 → EDBEDREQTM 13:05 → ENRESERV 14:32 → 5EST 17:51
PROVIDERS: ADMIT Internal Medicine; ATTEND Internal Medicine
PROC: 0JB80ZZ Excision of Abdomen Subcutaneous Tissue and Fascia, Open Approach (ICD-10-PCS; principal; 2025-02-04)
PROC: 0DP6XUZ Removal of Feeding Device from Stomach, External Approach (ICD-10-PCS; 2025-02-04)
PROC: 4A00X4Z Measurement of Central Nervous Electrical Activity, External Approach (ICD-10-PCS; 2025-02-05)
PROC: 02HV33Z Insertion of Infusion Device into Superior Vena Cava, Percutaneous Approach (ICD-10-PCS; 2025-02-06)
PROC: B548ZZA Ultrasonography of Superior Vena Cava, Guidance (ICD-10-PCS; 2025-02-06)
DX: A40.9 Streptococcal sepsis, unspecified (principal); G92.8 Other toxic encephalopathy; R65.21 Severe sepsis with septic shock; J96.01 Acute respiratory failure with hypoxia; J18.9 Pneumonia, unspecified organism; E87.4 Mixed disorder of acid-base balance; E11.52 Type 2 diabetes mellitus with diabetic peripheral angiopathy with gangrene; N39.0 Urinary tract infection, site not specified; B96.89 Other specified bacterial agents as the cause of diseases classified elsewhere; Z79.01 Long term (current) use of anticoagulants; I13.0 Hypertensive heart and chronic kidney disease with heart failure and stage 1 through stage 4 chronic kidney disease, or unspecified chronic kidney disease; D64.9 Anemia, unspecified; B19.20 Unspecified viral hepatitis C without hepatic coma; F02.80 Dementia in other diseases classified elsewhere, unspecified severity, without behavioral disturbance, psychotic disturbance, mood disturbance, and anxiety; N18.9 Chronic kidney disease, unspecified; G20.A1 Parkinson's disease without dyskinesia, without mention of fluctuations; L02.211 Cutaneous abscess of abdominal wall; K94.22 Gastrostomy infection; E27.40 Unspecified adrenocortical insufficiency; I47.19 Other supraventricular tachycardia; R13.10 Dysphagia, unspecified; Z20.822 Contact with and (suspected) exposure to COVID-19; L89.156 Pressure-induced deep tissue damage of sacral region; L89.896 Pressure-induced deep tissue damage of other site; E11.22 Type 2 diabetes mellitus with diabetic chronic kidney disease; M62.50 Muscle wasting and atrophy, not elsewhere classified, unspecified site; L89.526 Pressure-induced deep tissue damage of left ankle; L89.626 Pressure-induced deep tissue damage of left heel; L97.529 Non-pressure chronic ulcer of other part of left foot with unspecified severity; L97.519 Non-pressure chronic ulcer of other part of right foot with unspecified severity; E11.621 Type 2 diabetes mellitus with foot ulcer; L89.216 Pressure-induced deep tissue damage of right hip; E78.00 Pure hypercholesterolemia, unspecified; Z79.84 Long term (current) use of oral hypoglycemic drugs; Z74.01 Bed confinement status; Z86.73 Personal history of transient ischemic attack (TIA), and cerebral infarction without residual deficits; Z79.899 Other long term (current) drug therapy; Z82.49 Family history of ischemic heart disease and other diseases of the circulatory system; Y83.8 Other surgical procedures as the cause of abnormal reaction of the patient, or of later complication, without mention of misadventure at the time of the procedure; Y82.8 Other medical devices associated with adverse incidents
CPT/HCPCS: 36415; 36573; 36600; 71045; 75635; 80048; 80053; 80076; 80202; 81003; 82140; 82270; 82375; 82465; 82607; 82746; 82805; 82962; 83036; 83605; 83735; 84100; 84145; 84443; 84450; 84460; 84478; 84484; 85025; 86850; 86900; 87070; 87075; 87077; 87106; 87186; 87420; 87426; 87804; 88300; 93005; 93306; 93923; 93970; 94070; 94640; 94664; 95816; 96365; 98960; 99291; A4606; C1725; J0665; J0696; J1308; J1644; J1650; J1815; J2003; J2270; J2405; J2543; J2704; J3010; J3373; J3420; J3475; J3480; J3490; J7030; J7060; Q9967; A4217; J0131